=== PATIENT | female | born 1995 | race Caucasian/White ===

== ENCOUNTER 2017-12-02 20:37 | Emergency (ER) | payer BC ==
--- NOTE | 2017-12-02 21:10 | Emergency Department Record ---
History of Present Illness - General Chief complaint: Extremity Problem Stated complaint: RT HAND INDEX KNUKLE SWELLING AND PAIN Time Seen by Provider: 12/02/17 21:03 Source: Patient Mode of Arrival: Ambulatory Limitations: No limitations - History of Present Illness Initial comments: 21 yo female presents with right hand pain. She was working with her horse and her hand was slammed against the side of the metal trailer. No lacerations. She has local pain and swelling. No numbness or tingling. The pain is near the knuckle of the index and middle fingers. She is right handed. MD Complaint: Extremity pain, Joint pain Onset/Timin -: Hour(s) Location: Right, Hand Severity scale (1-10): 6 Improves with: Nothing Worsens with: Nothing Associated Symptoms: Denies other symptoms - Related Data Home Medications Medication Instructions Recorded Confirmed Last Taken Etonogestrel [Nexplanon] 1 unit INJ ASDIR 12/02/17 Unknown Allergies Allergy/AdvReac Type Severity Reaction Status Date / Time Penicillins Allergy Intermediate rash Unverified 06/14/16 19:47 Travel Screening - Travel/Exposure Within Last 30 Days Have you traveled within the last 30 days?: No - Travel/Exposure Within Last Year Have you traveled outside the [place] in the last year?: No - Additonal Travel Details Have you been exposed to anyone with a communicable illness?: No - Travel Symptoms Symptom Screening: None Review of Systems Constitutional: Denies: Chills, Fever, Malaise Eyes: Denies: Eye discharge, Eye pain ENT: Denies: Congestion, Throat pain Respiratory: Denies: Cough Cardiovascular: Denies: Chest pain Endocrine: Denies: Fatigue Gastrointestinal: Denies: Abdominal pain, Diarrhea, Nausea, Vomiting Genitourinary: Denies: Dysuria, Urgency Musculoskeletal: Reports: As per HPI, Arthralgia Skin: Denies: Bruising, Change in color, Rash Neurological: Denies: Headache, Numbness, Tingling, Tremors, Weakness Psychiatric: Denies: Anxiety Hematological/Lymphatic: Denies: Easy bleeding, Easy bruising Past Medical History - SOCIAL HISTORY Smoking Status: Never smoker Alcohol Use: None Drug Use: None - RESPIRATORY Hx Respiratory Disorders: Yes Hx Asthma: Yes - CARDIOVASCULAR Hx Cardio Disorders: No - NEURO Hx Neuro Disorders: No - GI Hx GI Disorders: No - Hx Genitourinary Disorders: No - ENDOCRINE Hx Endocrine Disorders: No - PSYCH Hx Psych Problems: No - HEMATOLOGY/ONCOLOGY Hx Hematology/Oncology Disorders: No Family Medical History Any Significant Family History?: No Physical Exam - General General Appearance: Alert, Oriented x3, Cooperative, No acute distress - Head Head exam: Atraumatic, Normal inspection - Eye Eye exam: Normal appearance - ENT ENT exam: Normal exam Ear exam: Normal external inspection Nasal Exam: Normal inspection Mouth exam: Normal external inspection - Neck Neck exam: Normal inspection - Cardiovascular Cardiovascular Exam: Regular rate, Normal rhythm, Normal heart sounds Peripheral Pulses: 2+: Radial (R) - Rectal Rectal exam: Deferred - exam: Deferred - Extremities Extremities exam: Joint swelling, Normal capillary refill, Tenderness. negative : Normal inspection Image of Hand: 1 - mild swelling and tenderness, intact skin, no deformity - Neurological Neurological exam: Alert, Oriented X3 - Psychiatric Psychiatric exam: Normal affect, Normal mood - Skin Skin exam: Dry, Intact, Normal color, Warm Course Vital Signs 12/02/17 20:40 Temperature 98.8 F Pulse Rate 110 H Respiratory 20 Rate Blood Pressure 125/83 Pulse Ox 97 - Reevaluation(s) Reevaluation #1: 12/02/17 21:09 The XR of the hand was reviewed No acute displaced fracture or dislocation Disposition Disposition: Discharge Clinical Impression: Hand contusion Disposition: Home, Self-Care Condition: (1) Good Instructions: Hand Sprain (ED) Additional Instructions: Ice the area to minimize swelling You will need a recheck and possible re Xray in 7-10 days if not improved. Forms: Patient Portal Access Time of Disposition: 21:10 Quality - Quality Measures Quality Measures: N/A - Blood Pressure Screening Does Patient Have Any of the Following: No Blood Pressure Classification: Pre-Hypertensive BP Reading Systolic Measurement: 125 Diastolic Measurement: 83 Screening for High Blood Pressure: < Pre-Hypertensive BP, F/U Documented > [ [id number]] Pre-Hypertensive Follow-up Interventions: Referral to alternative/primary care provider.
--- NOTE | 2017-12-04 08:28 | RADIOLOGY REPORT ---
EXAM: RIGHT HAND, THREE VIEWS HISTORY: INJURY TO THE SECOND KNUCKLE. TECHNIQUE: Three views of the right hand were obtained. Comparison: None. Encounter: Initial. FINDINGS: Three views of the right hand show no evidence of fracture or dislocation. No radiopaque foreign bodies or soft tissue abnormality. IMPRESSION: NORMAL RIGHT HAND. JOB NUMBER: [id number] MTDD
== END 2017-12-02 21:27 | disposition home or self-care (01) ==
LOC: ER 20:37
DX: S60.211A Contusion of right wrist, initial encounter (principal); W22.8XXA Striking against or struck by other objects, initial encounter; Y93.K9 Activity, other involving animal care
CPT/HCPCS: 99283